=== PATIENT | female | born 1980 | race Caucasian/White ===

== ENCOUNTER 2017-01-21 19:35 | Emergency (ER) | payer OTHER | END 2017-01-21 22:45 | disposition home or self-care (01) | LOC: ER1 19:35 | DX: N39.0 Urinary tract infection, site not specified (principal); R31.9 Hematuria, unspecified; K08.89 Other specified disorders of teeth and supporting structures; F17.210 Nicotine dependence, cigarettes, uncomplicated; Z88.1 Allergy status to other antibiotic agents; Z90.710 Acquired absence of both cervix and uterus | CPT/HCPCS: 36415; 81001; 84703; 87086; 99284 ==

== ENCOUNTER 2021-05-12 16:27 | Emergency (ER) | payer OTHER ==
[~2021-05-12 16:27] MED LIST: AUGMENTIN 875-1 EACH PO; BACTRIM DS TAB1 EACH PO; CLINDAMYCIN HC150 MG PO; FLONASE 0.05% N16 GM; IBUPROFEN600 MG PO; KEFLEX CAP 500500 MG PO; MACROBID 100 M100 MG PO; NAPROSYN500 MG PO; NEOSPORIN OINT15 GM TOP; PEPCID20 MG PO; PREDNISONE50 MG PO; SILVADENE CREAM20 GM TOP; ZOFRAN4 MG PO; ZYRTEC10 M3 PO
[2021-05-12 19:12] LABS: HEMOGLOBIN 14.4 gm/dl (12.3-15.3); RED BLOOD COUNT 4.83 M/UL (4.00-5.10)
[2021-05-12 19:16] LABS: BUN/CREATININE RATIO 7 (0-10)
[2021-05-12] MEDS ORDERED: ZOFRAN ODT 4 MG4 MG PO (22:54)
[2021-05-16 08:13] LABS: CHLAMYDIA TRACHOMATIS, NAA Negative (Negative); NEISSERIA GONORRHOEAE, NAA Negative (Negative)
== END 2021-05-13 00:59 | disposition home or self-care (01) ==
LOC: ER1 16:27
PROVIDERS: Emergency Medicine; Physician Assistant Medical
DX: U07.1 COVID-19 (principal); N76.0 Acute vaginitis; E87.6 Hypokalemia; Z20.822 Contact with and (suspected) exposure to COVID-19
CPT/HCPCS: 0240U; 80053; 81001; 83605; 85025; 93005; 96365; 96372; 99284; J0696; J2405; Q9967

== ENCOUNTER 2021-06-14 19:39 | Emergency (ER) | payer OTHER ==
[~2021-06-14 19:39] MED LIST changes: +ZOFRAN ODT 4 MG4 MG PO
== END 2021-06-14 20:02 | disposition left against medical advice (07) ==
LOC: ER1 19:39
DX: Z53.21 Procedure and treatment not carried out due to patient leaving prior to being seen by health care provider (principal)

== ENCOUNTER 2022-04-14 22:16 | Emergency (ER) | payer OTHER ==
[2022-04-14 23:34] LABS: HEMOGLOBIN 14.9 gm/dl (12.3-15.3); RED BLOOD COUNT 4.89 M/UL (4.00-5.10); WHITE BLOOD COUNT 6.7 K/UL (4.5-11.0)
[2022-04-14 23:51] LABS: BUN/CREATININE RATIO 14 (0-10)
[2022-04-15] MEDS ORDERED: ZOFRAN ODT 4 MG4 MG SL (02:30)
== END 2022-04-15 03:35 | disposition home or self-care (01) ==
LOC: ER1 22:16
PROVIDERS: Physician Assistant Medical
DX: R10.84 Generalized abdominal pain (principal); R11.2 Nausea with vomiting, unspecified
CPT/HCPCS: 80053; 81001; 83605; 85025; 87040; 96374; 96375; 99284; J1885; J2405